=== PATIENT | female | born 1985 | race Caucasian/White ===

== ENCOUNTER 2016-11-04 15:57 | Emergency (ER) | payer MEDICAID ==
[~2016-11-04] VITALS: Ht 157.5 cm; Wt 89.0 kg
[~2016-11-04 15:57] MED LIST: PREN1TAB17 PO
[2016-11-04 16:07] VITALS: Ht 157.5 cm; Wt 89.0 kg
[2016-11-04] MEDS ORDERED: ACETAMINOPHEN 500 MG TAB PO STA (18:25)
[2016-11-04 18:52] LABS: ADD SCAN DIFF NO
[2016-11-04 18:58] LABS: BASOPHIL # 0.1 10^3/ul (0.0-0.1); BASOPHILS % 0.7 % (0.0-2.0); EOSINOPHILS # 0.1 10^3/ul (0.0-0.5); EOSINOPHILS % 0.9 % (0.0-7.0); HEMATOCRIT 37.8 % (37.0-47.0); HEMOGLOBIN 12.8 g/dl (12.0-16.0); LYMPHOCYTES # 3.6 10^3/ul (0.8-2.9); LYMPHOCYTES % 35.8 % (15.0-51.0); MEAN CORPUSCULAR HEMOGLOBIN 29.9 pg (29.0-33.0); MEAN CORPUSCULAR HGB CONC 33.9 g/dl (32.0-37.0); MEAN CORPUSCULAR VOLUME 88.3 fl (82.0-101.0); MEAN PLATELET VOLUME 9.1 fl (7.4-10.4); MONOCYTE # 0.6 10^3/ul (0.3-0.9); NEUTROPHIL # 5.7 10^3/ul (1.6-7.5); NEUTROPHILS % 56.2 % (39.0-77.0); PLATELET COUNT 287 10^3/UL (140-415); RED BLOOD COUNT 4.28 10^6/ul (4.20-5.40); WHITE BLOOD COUNT 10.1 10^3/ul (4.8-10.8)
[2016-11-04 18:58] LABS: ADD UMIC YES; URINE BILIRUBIN (Dip) NEGATIVE (NEGATIVE); URINE BLOOD (Dip) TRACE (NEGATIVE); URINE COLOR LT. YELLOW (YELLOW); URINE GLUCOSE (Dip) NEGATIVE (NEGATIVE); URINE KETONES (Dip) NEGATIVE (NEGATIVE); URINE LEUKOCYTE ESTERASE (Dip) TRACE (NEGATIVE); URINE NITRITE (Dip) NEGATIVE (NEGATIVE); URINE TOTAL PROTEIN (Dip) NEGATIVE (NEGATIVE); URINE UROBILINOGEN (Dip) 0.2 E.U./dL (0.1-1.0)
[2016-11-04 19:10] LABS: BACTERIA,URINE FEW; SQUAMOUS EPITHELIAL CELL,UR FEW; URINE RBCS 0-2 /HPF (0)
--- NOTE | 2016-11-04 19:18 | ERD ---
ER Documentation Chief Complaint Date/Time DATE: 11/04/16 TIME: 19:16 Chief Complaint l side flank pain for past day with painfull urination HPI This is a 31-year-old female presents to the ER with lower back pain. Patient states that she has had painful urination since yesterday. She has also had frequency in urination. Patient admits to light yellow vaginal discharge, however it is not foul smelling. She denies any vaginal itchiness. She denies any vaginal bleeding. Patient is currently . She is about 6 weeks . A1. Patient denies any fevers or chills. She does admit to nausea however she has been feeling nauseous throughout her . She denies any vomiting. She does admit to some suprapubic pain. ROS 12 point review of systems was done, all negative except per HPI. Medications Home Meds Active Scripts Acetaminophen* (Tylenol*) 500 Mg Tab, 500 MG PO Q4H Y for MILD PAIN LEVEL 1-3 for 3 Days, TAB Prov:EUSEBIO CULP 11/04/16 Nitrofurantoin Monohyd Macrocr* (Macrobid*) 100 Mg Capsr, 100 MG PO BID for 7 Days, CAP Prov:EUSEBIO CULP 11/04/16 Reported Medications Vit-Iron Fumarate-FA ( Tablet) 1 Each Tablet, 1 EACH PO DAILY 12/17/13 Allergies Allergies: Coded Allergies: No Known Allergy (Verified , 11/04/16) PMhx/Soc History of Surgery: Yes (Appendix) Anesthesia Reaction: No Hx Neurological Disorder: No Hx Respiratory Disorders: No Hx Cardiac Disorders: No Hx Psychiatric Problems: No Hx Miscellaneous Medical Probl: No Hx Alcohol Use: No Hx Substance Use: No Hx Tobacco Use: No Smoking Status: Never smoker Physical Exam Vitals Vital Signs Date Time Temp Pulse Resp B/P Pulse Ox O2 Delivery O2 Flow Rate FiO2 11/04/16 16:07 97.8 92 18 135/75 100 Physical Exam GENERAL: The patient is well developed and appropriate for usual state of health , in no apparent distress. HEENT: Atraumatic. CHEST: Clear to auscultation bilaterally. There are no rales, wheezes or rhonchi. HEART: Regular rate and rhythm. No murmurs, clicks, rubs or gallops. ABDOMEN: Soft, nontender and nondistended. Good bowel sounds. No rebound or guarding. No gross peritonitis. No gross organomegaly or masses. No Goncalves sign or McBurney point tenderness. Tender to palpation over suprapubic area. BACK: No midline or flank tenderness. No CVA tenderness EXTREMITIES: Equal pulses bilaterally. There is no peripheral clubbing, cyanosis or edema. No focal swelling or erythema. Full range of motion. Grossly neurovascularly intact. NEURO: Alert and oriented. Cranial nerves II through XII are intact. Motor strength in all 4 extremities with 5/5 strength. Sensation grossly intact. Normal speech and gait. SKIN: There is no apparent rash or petechia. The skin is warm and dry. Result Diagram: 11/04/16 1840 Results 24 hrs Laboratory Tests Test 11/04/16 18:30 11/04/16 18:40 Urine Bacteria FEW Urine Bilirubin NEGATIVE Urine Clarity CLEAR Urine Color LT. YELLOW Urine Glucose NEGATIVE% Urine Hemoglobin TRACE Urine Ketones NEGATIVE Urine Leukocyte Esterase TRACE Urine Microscopic RBC 0-2/HPF Urine Microscopic WBC 0-2/HPF Urine Nitrite NEGATIVE Urine Specific [place] >=1.030 Urine Squamous Epithelial Cells FEW Urine Total Protein NEGATIVE Urine Urobilinogen 0.2 E.U./dL Urine Yeast OCCASIONAL Urine pH 6.0 Basophils # 0.110^3/ul Basophils % 0.7% Beta HCG, Quantitative 6713.9mIU/ml Eosinophils # 0.110^3/ul Eosinophils % 0.9% Hematocrit 37.8% Hemoglobin 12.8g/dl Lymphocytes # 3.610^3/ul Lymphocytes % 35.8% Mean Corpuscular Hemoglobin 29.9pg Mean Corpuscular Hemoglobin Concent 33.9g/dl Mean Corpuscular Volume 88.3fl Mean Platelet Volume 9.1fl Monocytes # 0.610^3/ul Monocytes % 6.0% Neutrophils # 5.710^3/ul Neutrophils % 56.2% Nucleated Red Blood Cells # 0.010^3/ul Nucleated Red Blood Cells % 0.0/100WBC Platelet Count 34331^3/UL Red Blood Count 4.2810^6/ul Red Cell Distribution Width 12.0% White Blood Count 10.110^3/ul Current Medications Medications (Trade) Dose Ordered Sig/Eleanor Route PRN Reason Start Time Stop Time Status Last Admin Dose Admin Acetaminophen (Tylenol Tab) 1,000 mg ONCE STAT PO 11/04/16 18:25 11/04/16 18:27 DC 11/04/16 18:35 Procedures/MDM This is a 31-year-old female presents to the ER with back pain and urinary frequency and dysuria. Patient did have trace leukocytes on her urinalysis. Because patient is very symptomatic she will be treated for possible urinary tract infection suspicion for pyelonephritis is low. Patient is afebrile she is well-appearing she does not have any CVA tenderness. In regards to patient' s vaginal discharge I do not believe this is bacterial vaginosis or trichomonas. Seeing as metronidazole is contraindicated in the first trimester I do not believe it is a good idea to give this to the patient as she is only 5 weeks . Patient was not complaining of any vaginal bleeding, I doubt and or ectopic . Patient needs to follow-up within 48 hours for repeat ultrasound and quantitative hCG. She needs to return to ER sooner if symptoms worsen. Plan was discussed with the patient understands and agrees with plan Departure Diagnosis: Primary Impression: UTI (urinary tract infection) Condition: Stable EUSEBIO CULP Nov 04, 2016 19:18
--- NOTE | 2016-11-04 19:29 | RADRPT ---
PROCEDURE: US Pelvis. CLINICAL INDICATION: Vaginal bleeding TECHNIQUE: Multiple sonographic images of the pelvis were obtained utilizing a transabdominal and endovaginal technique. The images were reviewed on a PACS workstation. COMPARISON: None. FINDINGS: The uterus is visualized and measures 10.2 x 7.5 cm in size. A small sonolucency is seen in the endo metrium which gives the mean gestational sac diameter of 9 mm. The estimated gestational age would be 5 weeks and 3 days. There is no evidence for free fluid. The right ovary has a normal echotextur e and measures 3 x 2.6 cm. The left ovary has a normal echotexture and measures 2.2 x 1.4 cm. No a dnexal masses are noted. IMPRESSION: Small sonolucency in the endometrium which may represent an early . Correlation with seria l beta HCG levels is suggested as well as a short interval follow-up. RPTAT: HPNM Physician Trini Date Time Electronically viewed and signed by Physician Trini on 11/04/2016 19:28 /
[2016-11-04] MEDS ORDERED: TYL500 PO (19:39)
[2016-11-04] MEDS ORDERED: NITR-58 PO (19:39)
[2016-11-04 19:53] VITALS: BP 142/86; PULSE 83; RESP 16; TEMP 98.6
== END 2016-11-04 19:55 | disposition home or self-care (01) ==
LOC: FTE 15:57
DX: O23.41 Unspecified infection of urinary tract in pregnancy, first trimester (principal); M54.5 Low back pain; Z3A.01 Less than 8 weeks gestation of pregnancy
CPT/HCPCS: 36415; 76801; 76817; 81001; 84702; 85025; 86900; 86901; Z7502; Z7610; 81003

== ENCOUNTER 2016-11-07 16:35 | Emergency (ER) | payer MEDICAID ==
[~2016-11-07] VITALS: Wt 90.0 kg
[~2016-11-07 16:35] MED LIST changes: +NITR-58 PO; +TYL500 PO
[2016-11-07 18:02] LABS: ADD SCAN DIFF NO
[2016-11-07 18:05] LABS: BASOPHIL # 0.1 10^3/ul (0.0-0.1); BASOPHILS % 0.5 % (0.0-2.0); EOSINOPHILS # 0.1 10^3/ul (0.0-0.5); EOSINOPHILS % 0.7 % (0.0-7.0); HEMATOCRIT 37.5 % (37.0-47.0); HEMOGLOBIN 12.7 g/dl (12.0-16.0); LYMPHOCYTES # 3.9 10^3/ul (0.8-2.9); MEAN CORPUSCULAR HEMOGLOBIN 30.2 pg (29.0-33.0); MEAN CORPUSCULAR HGB CONC 33.9 g/dl (32.0-37.0); MEAN CORPUSCULAR VOLUME 89.1 fl (82.0-101.0); MEAN PLATELET VOLUME 9.1 fl (7.4-10.4); MONOCYTE # 0.7 10^3/ul (0.3-0.9); MONOCYTES % 6.4 % (0.0-11.0); NEUTROPHIL # 6.3 10^3/ul (1.6-7.5); NEUTROPHILS % 57.2 % (39.0-77.0); PLATELET COUNT 273 10^3/UL (140-415); RED BLOOD COUNT 4.21 10^6/ul (4.20-5.40); RED CELL DISTRIBUTION WIDTH 11.9 % (11.5-14.5); WHITE BLOOD COUNT 11.1 10^3/ul (4.8-10.8)
[2016-11-07 18:19] LABS: ADD UMIC YES; URINE BILIRUBIN (Dip) NEGATIVE (NEGATIVE); URINE BLOOD (Dip) TRACE (NEGATIVE); URINE COLOR LT. YELLOW (YELLOW); URINE GLUCOSE (Dip) NEGATIVE (NEGATIVE); URINE KETONES (Dip) NEGATIVE (NEGATIVE); URINE LEUKOCYTE ESTERASE (Dip) 2+ (NEGATIVE); URINE NITRITE (Dip) NEGATIVE (NEGATIVE); URINE TOTAL PROTEIN (Dip) NEGATIVE (NEGATIVE); URINE UROBILINOGEN (Dip) 0.2 E.U./dL (0.1-1.0)
[2016-11-07 18:26] LABS: SQUAMOUS EPITHELIAL CELL,UR FEW; URINE RBCS 0-2 /HPF (0)
[2016-11-07 18:27] LABS: BACTERIA,URINE FEW
--- NOTE | 2016-11-07 18:27 | RADRPT ---
PROCEDURE: US OB. CLINICAL INDICATION: Vaginal spotting TECHNIQUE: Transabdominal and transvaginal views of the pelvis are available for review. COMPARISON: 11/04/16 FINDINGS: There is a single intrauterine gestation with the crown-rump length measuring 0.3 cm, corresponding to a gestational age of 5 weeks and 6 days. The heart rate is noted at 112 bpm. Normal Doppler flow is identified in both ovaries. The right ovary measures 3.5 x 2.2 x 2.5 cm. There is a corpus luteum cyst in the right ovary measur ing 1.6 cm. The left ovary measures 2.4 x 1.5 x 1.8 cm. There is a trace amount of free fluid adjacent to the right ovary and in the cul-de-sac. RPTAT: AA IMPRESSION: Single live intrauterine with an estimated gestational age of 5 weeks and 6 days, based on ultrasound measurements. TOAN based on ultrasound measurements is 07/04/17. bradycardia may be due to the early gestation. Close follow-up is needed. .Yoandy Power MD, MD Date Time Electronically viewed and signed by .Yoandy Power MD, on 11/07/2016 18:27 .S/
--- NOTE | 2016-11-07 18:38 | ERD ---
ER Documentation Chief Complaint Date/Time DATE: 11/07/16 Chief Complaint . Vaginal bleeding. Dysuria. HPI The patient is a 31-year-old female, A1, who presents to the Emergency Department with complaint of vaginal bleeding, vaginal discharge and dysuria. The patient reports that her last menstrual period was 09/23/2016, and she believes that she is approximately 6 weeks . She notes that approximately one week ago she developed a burning sensation upon urination, with associated urinary frequency and urgency. She was seen in the Emergency Department, at which time she was diagnosed with a urinary tract infection, and discharged home with a prescription for Macrobid. She has been taking the Macrobid as directed, twice a day, though has not noted any change in symptoms. She continues to experience dysuria, frequency and urgency. Denies flank pain. The patient also notes presence of white-colored vaginal discharge, associated with minimal pruritus. However, denies any associated foul smell. Denies dyspareunia. The patient is sexually active, but in a monogamous relationship for many years. She doubts STI exposure. Additionally, the patient reports that this morning, after using the restroom, she noted light pink-colored vaginal bleeding on the toilet paper, prompting her visit to the ED, as she is concerned about viability of her . She denies any fevers or chills. Admits to mild nausea, however states that she has been nauseous throughout her and this is not new. Denies any vomiting. Denies diarrhea. Denies any black or bloody stools. Denies abdominal pain or cramping. Denies pelvic pain. Denies lower extremity edema, calf swelling or calf tenderness. Denies any headache, dizziness, weakness. Denies chest pain, palpitations or shortness of breath. ROS All systems reviewed and are negative except as per history of present illness. Medications Home Meds Active Scripts Metronidazole* (Metrogel* Vaginal) 0.75% -70 Gram Gel.w.appl, 1 APPFUL VAG HS for 5 Days, TUB Prov:TED HARDEN PA-C 11/07/16 Acetaminophen* (Tylenol*) 500 Mg Tab, 500 MG PO Q4H Y for MILD PAIN LEVEL 1-3 for 3 Days, TAB Prov:EUSEBIO CULP 2/25/17 Nitrofurantoin Monohyd Macrocr* (Macrobid*) 100 Mg Capsr, 100 MG PO BID for 7 Days, CAP Prov:EUSEBIO CULP 11/04/16 Reported Medications Vit-Iron Fumarate-FA ( Tablet) 1 Each Tablet, 1 EACH PO DAILY 12/17/13 Allergies Allergies: Coded Allergies: No Known Allergy (Verified , 11/04/16) PMhx/Soc History of Surgery: Yes (Appendix) Anesthesia Reaction: No Hx Neurological Disorder: No Hx Respiratory Disorders: No Hx Cardiac Disorders: No Hx Psychiatric Problems: No Hx Miscellaneous Medical Probl: No Hx Alcohol Use: No Hx Substance Use: No Hx Tobacco Use: No Smoking Status: Never smoker Physical Exam Vitals Vital Signs Date Time Temp Pulse Resp B/P Pulse Ox O2 Delivery O2 Flow Rate FiO2 11/07/16 20:52 97.4 81 18 134/80 98 Room Air 11/07/16 17:05 98.3 80 20 133/75 100 Physical Exam GENERAL: Well-developed, well-nourished, female, in no acute distress HEENT: Head is normocephalic, atraumatic. No scleral pallor or icterus. Pupils equal, round and reactive to light. Extraocular movements intact. Conjunctiva pink. Moist mucous membranes. NECK: Supple. Full range of motion. RESPIRATORY: Lungs are clear to auscultation bilaterally. Equal breath sounds. Normal expiratory effort. CARDIOVASCULAR: Regular rate and rhythm. S1 and S2 normal. GASTROINTESTINAL: Abdomen is soft, non-tender, and non-distended. No guarding, no rebound tenderness. Normal bowel sounds. GENITOURINARY: White-colored discharge noted with mild erythema of external genitalia. No cervical motion tenderness. No adnexal or uterine masses. No lesions, vesicles, ulcerations noted. Cervix closed. No active bleeding. FLANK: No CVA tenderness. EXTREMITIES: No clubbing, cyanosis, or edema. Normal skin perfusion. Moving all extremities. Muscle tone is normal. No focal swelling or erythema. Distal pulses are palpable, 2+ bilaterally. Capillary refill is less than 2 seconds. NEUROLOGIC: The patient is alert, awake, and oriented x 3. No focal neurologic deficits. INTEGUMENT: Skin is intact. Warm and dry. No rashes, no petechiae present. Normal turgor. PSYCHIATRIC: Normal mood and mentation. Result Diagram: 11/07/16 1800 Results 24 hrs Laboratory Tests Test 11/07/16 18:00 Basophils # 0.110^3/ul Basophils % 0.5% Beta HCG, Quantitative 11538.0mIU/ml Eosinophils # 0.110^3/ul Eosinophils % 0.7% Hematocrit 37.5% Hemoglobin 12.7g/dl Lymphocytes # 3.910^3/ul Lymphocytes % 35.0% Mean Corpuscular Hemoglobin 30.2pg Mean Corpuscular Hemoglobin Concent 33.9g/dl Mean Corpuscular Volume 89.1fl Mean Platelet Volume 9.1fl Monocytes # 0.710^3/ul Monocytes % 6.4% Neutrophils # 6.310^3/ul Neutrophils % 57.2% Nucleated Red Blood Cells # 0.010^3/ul Nucleated Red Blood Cells % 0.0/100WBC Platelet Count 21297^3/UL Red Blood Count 4.2110^6/ul Red Cell Distribution Width 11.9% Urine Bacteria FEW Urine Bilirubin NEGATIVE Urine Clarity CLEAR Urine Color LT. YELLOW Urine Glucose NEGATIVE% Urine Hemoglobin TRACE Urine Ketones NEGATIVE Urine Leukocyte Esterase 2+ Urine Microscopic RBC 0-2/HPF Urine Microscopic WBC 10-25/HPF Urine Nitrite NEGATIVE Urine Specific [place] <=1.005 Urine Squamous Epithelial Cells FEW Urine Total Protein NEGATIVE Urine Urobilinogen 0.2 E.U./dL Urine pH 6.0 White Blood Count 11.110^3/ul Current Medications Medications (Trade) Dose Ordered Sig/Eleanor Route PRN Reason Start Time Stop Time Status Last Admin Dose Admin Fluconazole (Diflucan) 150 mg ONCE ONCE PO 11/07/16 20:30 11/07/16 20:31 DC 11/07/16 20:36 Procedures/MDM DIAGNOSTIC TESTS AND INTERPRETATION: PROCEDURE: US OB. CLINICAL INDICATION: Vaginal spotting TECHNIQUE: Transabdominal and transvaginal views of the pelvis are available for review. COMPARISON: 11/04/16 FINDINGS: There is a single intrauterine gestation with the crown-rump length measuring 0.3 cm, corresponding to a gestational age of 5 weeks and 6 days. The heart rate is noted at 112 bpm. Normal Doppler flow is identified in both ovaries. The right ovary measures 3.5 x 2.2 x 2.5 cm. There is a corpus luteum cyst in the right ovary measuring 1.6 cm. The left ovary measures 2.4 x 1.5 x 1.8 cm. There is a trace amount of free fluid adjacent to the right ovary and in the cul -de-sac. IMPRESSION: Single live intrauterine with an estimated gestational age of 5 weeks and 6 days, based on ultrasound measurements. TOAN based on ultrasound measurements is 07/04/17. bradycardia may be due to the early gestation. Close follow-up is needed. .Yoandy Power MD, MD Date Time Electronically viewed and signed by .Yoandy Power MD, on 11/07/2016 18: 27 Microbiology WET MOUNT Final WHITE BLOOD CELLS 4+ BACTERIA 3+ EPITHELIAL CELLS 3+ YEAST 2+ CLUE CELLS CLUE CELLS SEEN MOTILE TRICHOMONAS NO MOTILE TRICHOMONAS SEEN CONSULTATION: Dr. Arias (BROACHING MACHINE REPAIRER): Given that patient has 2+ urine leukocyte esterase, + clue cells, + yeast and is , BROACHING MACHINE REPAIRER consulted. Dr. Arias recommends that patient continue on the Macrobid for the urinary tract infection. Recommends fluconazole 150 mg PO x 1 in the ED as treatment of yeast infection. Recommends that the patient be discharged home with rx for MetroGel as treatment of bacterial vaginosis. ED COURSE: The patient was stable throughout the ED course. Pelvic examination performed. Patient's wet mount revealed + yeast and + clue cells. Suspect johanna and bacterial vaginosis as etiology of patient's discharge and discomfort. Patient was given 150 mg Fluconazole in the ED as treatment of yeast infection. Discussed patient's urinalysis results, and Dr. Arias's recommendation that patient continue with Macrobid. Additionally, discussed that will prescribe MetroGel as treatment of bacterial vaginosis. Patient agrees with plan. GC/Chlamydia testing sent and pending. Ultrasound imaging and laboratory testing performed. The possibility of threatened was discussed with the patient and she was told to follow up with her BROACHING MACHINE REPAIRER within 2-3 days for re-evaluation. The patient complies and agrees with plan. MEDICAL DECISION MAKING: This is a 31-year-old female presenting to the Emergency Department complaining of vaginal bleeding, discharge and dysuria. She had white-colored discharge noted with mild erythema of external genitalia on physical examination. Otherwise, no significant abnormalities were noted. Vital signs were normal. Differential diagnosis includes, but is not limited to, ectopic , cervicitis, fibroids, molar , implantation bleeding, heterotopic , septic , missed , incomplete , inevitable , threatened , complete , coagulopathy, fibroids, adenomyosis, endometriosis, neoplasia, vaginitis, PID , vaginal trauma, dysfunctional uterine bleeding, gonorrhea, chlamydia, urinary tract infection, pyelonephritis, bacterial vaginosis, candidiasis, trichomoniasis. Urinalysis revealed 2+ urine leukocyte esterase, indicating likely urinary tract infection. Urine culture sent. Wet mount noted 2+ yeast and presence of clue cells, indicating candidiasis and bacterial vaginosis. GC/Chlamydia testing sent. Beta hCG is 13,473. Records from prior visit indicate that patient is Rh (+), no indication for RhoGAM. Ultrasound performed revealed a single intrauterine gestation, corresponding to a gestational age of 5 weeks and 6 days, with heart rate is noted at 112 bpm. Given bradycardia, close follow-up advised. After rest, the patient reports no new complaints, and states that her cramping has resolved. Upon review and interpretation of the patient's presentation and overall ER course, I believe the patient's symptoms are most consistent with threatened , bacterial vaginosis, vaginal candidiasis and urinary tract infection. Patient with no cervical motion tenderness. No clinical finding s at this time to suggest cervicitis, PID, pyelonephritis, acute/surgical abdomen. The patient patient is in stable condition and therefore can be discharged home with prescription for MetroGel strict return precautions for signs of deteriorating or worsening condition. The patient is advised to follow up with her BROACHING MACHINE REPAIRER within 2-3 days for reevaluation and further management, or return to the ER sooner for any worsening symptoms. I shared all laboratory and diagnostic imaging studies with the patient at length and in great detail, and the patient verbally understands and agrees with the plan for further observation and care as an outpatient. At the time of discharge, all questions were answered. Departure Diagnosis: Primary Impression: Vaginal bleeding in patient at less than 20 weeks gestation Additional Impressions: Vaginal candidiasis Urinary tract infection Urinary tract infection type: acute cystitis Hematuria presence: with hematuria Qualified Code: N30.01 - Acute cystitis with hematuria Threatened Bacterial vaginosis Condition: Stable Patient Instructions: Bleeding During Early , Possible Miscarriage ( Threatened ), Understanding Urinary Tract Infections (UTIs), Vaginal Infection: Bacterial Vaginosis, Vaginal Infection: Yeast (Candidiasis), Vaginitis, Bacterial Additional Instructions: Llame al doctor MAANA y rachel prakash AKASH PARA DENTRO DE 2-3 EVANS.Dgale a la secretaria que nosotros le instruimos hacer esta akash.Avise o llame si pena condicin se empeora antes de la akash. Regresa aqui si peor o no mejor. TED HARDEN PA-C Nov 07, 2016 18:38
[2016-11-07] MEDS ORDERED: METR70GE15 VAG (20:26)
[2016-11-07] MEDS ORDERED: FLUCONAZOLE 150 MG TAB PO ONE (20:30)
[2016-11-07 20:52] VITALS: BP 134/80; PULSE 81; RESP 18; TEMP 97.4
== END 2016-11-07 20:54 | disposition home or self-care (01) ==
LOC: FTE 16:35
DX: O20.9 Hemorrhage in early pregnancy, unspecified (principal); B37.3 Candidiasis of vulva and vagina; O99.89 Other specified diseases and conditions complicating pregnancy, childbirth and the puerperium; O23.41 Unspecified infection of urinary tract in pregnancy, first trimester; O20.0 Threatened abortion; Z3A.01 Less than 8 weeks gestation of pregnancy
CPT/HCPCS: 76801; 76817; 81001; 84702; 85025; 87086; 87210; 87591; Z7502; Z7610; 81003

== ENCOUNTER 2016-11-17 14:50 | Emergency (ER) | payer MEDICAID ==
[~2016-11-17] VITALS: Ht 160 cm; Wt 89.0 kg
[~2016-11-17 14:50] MED LIST changes: +METR70GE15 VAG
[2016-11-17 14:53] VITALS: Ht 160 cm; Wt 89.0 kg
[2016-11-17 17:30] LABS: ADD SCAN DIFF NO
[2016-11-17 17:34] LABS: BASOPHIL # 0.1 10^3/ul (0.0-0.1); BASOPHILS % 0.5 % (0.0-2.0); EOSINOPHILS # 0.1 10^3/ul (0.0-0.5); EOSINOPHILS % 0.8 % (0.0-7.0); HEMATOCRIT 38.5 % (37.0-47.0); HEMOGLOBIN 13.1 g/dl (12.0-16.0); LYMPHOCYTES # 4.1 10^3/ul (0.8-2.9); LYMPHOCYTES % 31.1 % (15.0-51.0); MEAN CORPUSCULAR VOLUME 88.3 fl (82.0-101.0); MEAN PLATELET VOLUME 9.1 fl (7.4-10.4); MONOCYTE # 0.9 10^3/ul (0.3-0.9); MONOCYTES % 6.6 % (0.0-11.0); NEUTROPHIL # 7.9 10^3/ul (1.6-7.5); NEUTROPHILS % 60.7 % (39.0-77.0); PLATELET COUNT 297 10^3/UL (140-415); RED BLOOD COUNT 4.36 10^6/ul (4.20-5.40); RED CELL DISTRIBUTION WIDTH 11.9 % (11.5-14.5); WHITE BLOOD COUNT 13.1 10^3/ul (4.8-10.8)
[2016-11-17 17:40] LABS: ADD UMIC YES; URINE BILIRUBIN (Dip) NEGATIVE (NEGATIVE); URINE BLOOD (Dip) 2+ (NEGATIVE); URINE COLOR LT. YELLOW (YELLOW); URINE GLUCOSE (Dip) NEGATIVE (NEGATIVE); URINE KETONES (Dip) NEGATIVE (NEGATIVE); URINE LEUKOCYTE ESTERASE (Dip) 1+ (NEGATIVE); URINE NITRITE (Dip) NEGATIVE (NEGATIVE); URINE TOTAL PROTEIN (Dip) NEGATIVE (NEGATIVE); URINE UROBILINOGEN (Dip) 0.2 E.U./dL (0.1-1.0)
[2016-11-17 17:58] LABS: BACTERIA,URINE FEW; SQUAMOUS EPITHELIAL CELL,UR MODERATE
--- NOTE | 2016-11-17 20:12 | ERD ---
ER Documentation Chief Complaint Date/Time DATE: 11/17/16 TIME: 20:10 Chief Complaint 7 weeks with spotting HPI This 31-year-old female presents with vaginal spotting starting today. It started after she had a Pap smear at her OBs office. The blood is slight and bright red mixed with some mucus. She showed up. Denies any fevers, vomiting, or significant pain. ROS All systems reviewed and are negative except as per history of present illness. Medications Home Meds Active Scripts Metronidazole* (Metrogel* Vaginal) 0.75% -70 Gram Gel.w.appl, 1 APPFUL VAG HS for 5 Days, TUB Prov:TED HARDENC 11/07/16 Acetaminophen* (Tylenol*) 500 Mg Tab, 500 MG PO Q4H Y for MILD PAIN LEVEL 1-3 for 3 Days, TAB Prov:EUSEBIO CULP 11/04/16 Nitrofurantoin Monohyd Macrocr* (Macrobid*) 100 Mg Capsr, 100 MG PO BID for 7 Days, CAP Prov:EUSEBIO CULP 11/04/16 Reported Medications Vit-Iron Fumarate-FA ( Tablet) 1 Each Tablet, 1 EACH PO DAILY 12/17/13 Allergies Allergies: Coded Allergies: No Known Allergy (Verified , 11/04/16) PMhx/Soc Medical and Surgical Hx: pt denies Medical Hx History of Surgery: Yes (Appendix, CSECTION X1) Anesthesia Reaction: No Hx Neurological Disorder: No Hx Respiratory Disorders: No Hx Cardiac Disorders: No Hx Psychiatric Problems: No Hx Miscellaneous Medical Probl: No Hx Alcohol Use: No Hx Substance Use: No Hx Tobacco Use: No Smoking Status: Never smoker Physical Exam Vitals Vital Signs Date Time Temp Pulse Resp B/P Pulse Ox O2 Delivery O2 Flow Rate FiO2 11/17/16 14:53 98.1 78 18 130/78 99 Physical Exam Const: [] Alert, [id number]. Head: Atraumatic Eyes: Normal Conjunctiva ENT: Normal External Ears, Nose and Mouth. Neck: Full range of motion..~ No meningismus. Resp: Clear to auscultation bilaterally Cardio: Regular rate and rhythm, no murmurs Abd: Soft, non tender, non distended. Normal bowel sounds Skin: No petechiae or rashes Back: No midline or flank tenderness Ext: No cyanosis, or edema Neur: Awake and alert Psych: Normal Mood and Affect Result Diagram: 11/17/16 1725 Results 24 hrs Laboratory Tests Test 11/17/16 17:25 Basophils # 0.110^3/ul Basophils % 0.5% Beta HCG, Quantitative 41961.0mIU/ml Eosinophils # 0.110^3/ul Eosinophils % 0.8% Hematocrit 38.5% Hemoglobin 13.1g/dl Lymphocytes # 4.110^3/ul Lymphocytes % 31.1% Mean Corpuscular Hemoglobin 30.0pg Mean Corpuscular Hemoglobin Concent 34.0g/dl Mean Corpuscular Volume 88.3fl Mean Platelet Volume 9.1fl Monocytes # 0.910^3/ul Monocytes % 6.6% Neutrophils # 7.910^3/ul Neutrophils % 60.7% Nucleated Red Blood Cells # 0.010^3/ul Nucleated Red Blood Cells % 0.0/100WBC Platelet Count 13290^3/UL Red Blood Count 4.3610^6/ul Red Cell Distribution Width 11.9% Urine Bacteria FEW Urine Bilirubin NEGATIVE Urine Clarity SLIGHTLY CLOUDY Urine Color LT. YELLOW Urine Glucose NEGATIVE% Urine Hemoglobin 2+ Urine Ketones NEGATIVE Urine Leukocyte Esterase 1+ Urine Microscopic RBC 2-5/HPF Urine Microscopic WBC 5-10/HPF Urine Nitrite NEGATIVE Urine Specific [place] <=1.005 Urine Squamous Epithelial Cells MODERATE Urine Total Protein NEGATIVE Urine Urobilinogen 0.2 E.U./dL Urine pH 6.0 White Blood Count 13.110^3/ul Procedures/MDM Pelvic ultrasound shows a normal-appearing 7 week intrauterine with positive heart tones. Quantitative hCG is 54,000 and patient is Rh+. Urine shows leukocytes but only a few bacteria. Patient presents with vaginal spotting after Pap smear today. It does not appear to be acute complications of . May be some slight bleeding from the cervix. Patient shows no signs of acute abdomen, ectopic , or other additional complications as a source of her bleeding. She will discharged home with further observation and instructed to follow-up with primary doctor or return to the ER for new or worsening symptoms. Departure Diagnosis: Primary Impression: Vaginal bleeding in patient at less than 20 weeks ges... Condition: Stable Patient Instructions: Bleeding During Early Additional Instructions: All examinations normal today and normal 7 week seen on ultrasound. Recheck for new or worsening symptoms or primary care doctor. JUSTYNA HURD MD Nov 17, 2016 20:12
[2016-11-17 20:17] VITALS: BP 129/75; PULSE 90; RESP 16
--- NOTE | 2016-11-17 21:22 | RADRPT ---
PROCEDURE: OB Ultrasound. CLINICAL INDICATION: Positive test. Vaginal bleeding. TECHNIQUE: Ultrasound of the pelvis was performed with transabdominal and transvaginal sonography in the axial and sagittal planes. COMPARISON: No prior study is available for comparison. FINDINGS: There is a single intrauterine gestational sac. pole and yolk sac are present. There is heart motion. heart rate is 160 beats per minute. [place]-rump length is 1.14 cm. Mean sac diameter is 1.91 cm. Menstrual age by ultrasound dates is 7 weeks 0 days. This indicates an expected date of delivery of 07/06/2017. The right ovary measures 3.9 x 2.2 x 2.5 cm. The left ovary measures 2.1 x 1.4 x 1.2 cm. Color Doppler and pulsed Doppler sonography demonstrate normal flow to both ovaries. There is no ovarian enlargement or mass. A small amount of free fluid is present in the cul-de-sac. IMPRESSION: 1. Single live intrauterine gestation of 7 weeks 0 days menstrual age by ultrasound dates. 2. Expected date of delivery is 07/06/2017. RPTAT: QQ .Christiano Keenan MD, Date Time Electronically viewed and signed by .Christiano Keenan MD, on 11/17/2016 21:21 .R/
== END 2016-11-17 20:18 | disposition home or self-care (01) ==
LOC: FTE 14:50
DX: O20.9 Hemorrhage in early pregnancy, unspecified (principal); Z3A.01 Less than 8 weeks gestation of pregnancy
CPT/HCPCS: 36415; 76801; 76817; 81001; 81003; 84702; 85025; 86900; 86901; Z7502

== ENCOUNTER 2016-12-14 14:49 | Emergency (ER) | payer MEDICAID ==
[~2016-12-14] VITALS: Wt 79.0 kg
[2016-12-14 17:33] LABS: ADD SCAN DIFF NO
[2016-12-14 17:34] LABS: BASOPHIL # 0.1 10^3/ul (0.0-0.1); BASOPHILS % 0.5 % (0.0-2.0); EOSINOPHILS # 0.1 10^3/ul (0.0-0.5); EOSINOPHILS % 0.7 % (0.0-7.0); HEMATOCRIT 36.7 % (37.0-47.0); HEMOGLOBIN 12.8 g/dl (12.0-16.0); LYMPHOCYTES # 3.3 10^3/ul (0.8-2.9); LYMPHOCYTES % 27.2 % (15.0-51.0); MEAN CORPUSCULAR HEMOGLOBIN 30.8 pg (29.0-33.0); MEAN CORPUSCULAR HGB CONC 34.9 g/dl (32.0-37.0); MEAN CORPUSCULAR VOLUME 88.4 fl (82.0-101.0); MEAN PLATELET VOLUME 8.9 fl (7.4-10.4); MONOCYTE # 0.7 10^3/ul (0.3-0.9); NEUTROPHIL # 7.9 10^3/ul (1.6-7.5); NEUTROPHILS % 65.4 % (39.0-77.0); PLATELET COUNT 272 10^3/UL (140-415); RED BLOOD COUNT 4.15 10^6/ul (4.20-5.40); RED CELL DISTRIBUTION WIDTH 11.9 % (11.5-14.5); WHITE BLOOD COUNT 12.1 10^3/ul (4.8-10.8)
--- NOTE | 2016-12-14 17:42 | RADRPT ---
PROCEDURE: OB Ultrasound. CLINICAL INDICATION: Positive test. Vaginal bleeding. TECHNIQUE: Ultrasound of the pelvis was performed with transabdominal sonography in the axial and sagittal planes. COMPARISON: No prior study is available for comparison. FINDINGS: There is a single intrauterine gestational sac. pole is present. There is no heart motion. [employer]-rump length is 4.44 cm. Menstrual age by ultrasound dates is 11 weeks 2 days. The ovaries are not visualized. There is no other pelvic mass or free fluid. IMPRESSION: 1. demise at 11 weeks 2 days gestational age by ultrasound dates. RPTAT: QQ .Christiano Keenan MD, MD Date Time Electronically viewed and signed by .Christiano Keenan MD, MD on 12/14/2016 17:42 .R/
[2016-12-14 18:05] LABS: ADD UMIC YES; URINE BILIRUBIN (Dip) NEGATIVE (NEGATIVE); URINE BLOOD (Dip) NEGATIVE (NEGATIVE); URINE GLUCOSE (Dip) NEGATIVE (NEGATIVE); URINE KETONES (Dip) NEGATIVE (NEGATIVE); URINE LEUKOCYTE ESTERASE (Dip) 2+ (NEGATIVE); URINE NITRITE (Dip) NEGATIVE (NEGATIVE); URINE TOTAL PROTEIN (Dip) NEGATIVE (NEGATIVE); URINE UROBILINOGEN (Dip) 0.2 E.U./dL (0.1-1.0)
[2016-12-14 18:16] LABS: SQUAMOUS EPITHELIAL CELL,UR MANY; URINE COLOR YELLOW (YELLOW)
[2016-12-14 18:17] LABS: BACTERIA,URINE MANY; URINE RBCS 0-2 /HPF (0)
[2016-12-14] MEDS ORDERED: NITR-58 PO (18:36)
--- NOTE | 2016-12-14 18:44 | ERD ---
ER Documentation Chief Complaint Date/Time DATE: 12/14/16 TIME: 18:39 Chief Complaint 12 WEEKS PREG UNABLE TO HEAR HEART BEAT SENT BY OB HPI This is a 31-year-old female presents to the ER because she is 12 weeks and was told at her OBs office that they could not hear the heartbeat of the baby. A0. Patient she does not have any pelvic pain or cramping. No urinary frequency or dysuria. She denies any vaginal bleeding. She denies any vaginal discharge. Patient denies any fevers or chills. ROS 12 point review of systems was done, all negative except per HPI. Medications Home Meds Active Scripts Nitrofurantoin Monohyd Macrocr* (Macrobid*) 100 Mg Capsr, 100 MG PO BID for 7 Days, CAP Prov:SUNI,EUSEBIO C 12/14/16 Metronidazole* (Metrogel* Vaginal) 0.75% -70 Gram Gel.w.appl, 1 APPFUL VAG HS for 5 Days, TUB Prov:TED HARDEN PA-C 11/07/16 Acetaminophen* (Tylenol*) 500 Mg Tab, 500 MG PO Q4H Y for MILD PAIN LEVEL 1-3 for 3 Days, TAB Prov:SUNI,EUSEBIO C 11/04/16 Nitrofurantoin Monohyd Macrocr* (Macrobid*) 100 Mg Capsr, 100 MG PO BID for 7 Days, CAP Prov:SUNI,EUSEBIO C 11/04/16 Reported Medications Vit-Iron Fumarate-FA ( Tablet) 1 Each Tablet, 1 EACH PO DAILY 12/17/13 Allergies Allergies: Coded Allergies: No Known Allergy (Verified , 11/04/16) PMhx/Soc History of Surgery: Yes (Appendix, CSECTION X1) Anesthesia Reaction: No Hx Neurological Disorder: No Hx Respiratory Disorders: No Hx Cardiac Disorders: No Hx Psychiatric Problems: No Hx Miscellaneous Medical Probl: No Hx Alcohol Use: No Hx Substance Use: No Hx Tobacco Use: No Physical Exam Vitals Vital Signs Date Time Temp Pulse Resp B/P Pulse Ox O2 Delivery O2 Flow Rate FiO2 12/14/16 15:08 99.0 87 18 128/81 99 Physical Exam GENERAL: The patient is well developed and appropriate for usual state of health , in no apparent distress. HEENT: Atraumatic. CHEST: Clear to auscultation bilaterally. There are no rales, wheezes or rhonchi. HEART: Regular rate and rhythm. No murmurs, clicks, rubs or gallops. ABDOMEN: Soft, nontender and nondistended. Good bowel sounds. No rebound or guarding. No gross peritonitis. No gross organomegaly or masses. No Goncalves sign or McBurney point tenderness. BACK: No midline or flank tenderness. SKIN: There is no apparent rash or petechia. The skin is warm and dry. Result Diagram: 12/14/16 1720 Results 24 hrs Laboratory Tests Test 12/14/16 17:11 12/14/16 17:20 Urine Color YELLOW Urine Clarity CLOUDY Urine pH 6.0 Urine Specific [place] 1.025 Urine Ketones NEGATIVE Urine Nitrite NEGATIVE Urine Bilirubin NEGATIVE Urine Urobilinogen 0.2 E.U./dL Urine Leukocyte Esterase 2+ Urine Microscopic RBC 0-2/HPF Urine Microscopic WBC 25-50/HPF Urine Squamous Epithelial Cells MANY Urine Bacteria MANY Urine Hemoglobin NEGATIVE Urine Glucose NEGATIVE% Urine Total Protein NEGATIVE White Blood Count 12.110^3/ul Red Blood Count 4.1510^6/ul Hemoglobin 12.8g/dl Hematocrit 36.7% Mean Corpuscular Volume 88.4fl Mean Corpuscular Hemoglobin 30.8pg Mean Corpuscular Hemoglobin Concent 34.9g/dl Red Cell Distribution Width 11.9% Platelet Count 37579^3/UL Mean Platelet Volume 8.9fl Neutrophils % 65.4% Lymphocytes % 27.2% Monocytes % 6.0% Eosinophils % 0.7% Basophils % 0.5% Nucleated Red Blood Cells % 0.0/100WBC Neutrophils # 7.910^3/ul Lymphocytes # 3.310^3/ul Monocytes # 0.710^3/ul Eosinophils # 0.110^3/ul Basophils # 0.110^3/ul Nucleated Red Blood Cells # 0.010^3/ul Beta HCG, Quantitative 29587.0mIU/ml Procedures/MDM Differential diagnosis: Threatened , missed , incomplete , ectopic , molar , UTI, pyelonephritis. Patient unfortunately did have demise. At this time patient is not bleeding, she is hemodynamically stable and does not have any pain. I consulted OB mental health practitioner and patient can f/u with her OB and schedule a D&C. Patient needs to follow-up with her primary care doctor within 1-2 days or return to ER sooner if symptoms worsen. My medical decision making was shared with the patient she understands and agrees with plan Departure Diagnosis: Primary Impression: demise Condition: Stable Patient Instructions: Miscarriage Additional Instructions: Call your primary care doctor TOMORROW for an appointment during the next 1-2 days.See the doctor sooner or return here if your condition worsens before your appointment time. YOUR OB HAS TO SCHEDULE A D&C FOR YOU, THIS IS SOMETHING THAT CAN BE SCHEDULED OUTPATIENT EUSEBIO CULP Dec 14, 2016 18:44
[2016-12-14 18:46] VITALS: BP 123/78; PULSE 88; RESP 18; TEMP 98.6
== END 2016-12-14 18:46 | disposition home or self-care (01) ==
LOC: FTE 14:49
DX: O02.1 Missed abortion (principal)
CPT/HCPCS: 76801; 81001; 81003; 84702; 85025; 86900; 86901; Z7502

== ENCOUNTER 2017-12-04 12:57 | Emergency (ER) | END 2017-12-04 17:25 | disposition home or self-care (01) ==

== ENCOUNTER 2017-12-27 16:40 | Outpatient (CLI) | END 2017-12-27 20:23 | disposition home or self-care (01) ==

== ENCOUNTER 2018-04-06 09:41 | Outpatient (CLI) | END 2018-04-06 12:00 | disposition home or self-care (01) ==

== ENCOUNTER 2018-04-18 12:53 | Inpatient (IN) | END 2018-04-23 23:42 | disposition home or self-care (01) | DRG 765 ==

== ENCOUNTER 2018-09-17 23:53 | Emergency (ER) | payer MEDICAID ==
[~2018-09-17] VITALS: Ht 160 cm; Wt 85.4 kg
[~2018-09-17 23:53] MED LIST changes: -METR70GE15 VAG; -NITR-58 PO; -TYL500 PO
[2018-09-17 23:56] VITALS: Ht 160 cm; Wt 85.4 kg
--- NOTE | 2018-09-18 04:31 | ERD ---
ER Documentation Chief Complaint Chief Complaint vag bleed and back pain x2 hrs. 8 weeks HPI 33-year-old female who is approximately 8 weeks is complaining of vaginal spotting. Patient states that she noticed slight blood when wiping after urination. It occurred 5 hours ago. Denies pelvic pain. Denies dysuria. Denies fever or chills. Patient is A1 (5 live births), LMP 07/18/2018. ROS All systems reviewed and are negative except as per history of present illness. Medications Home Meds Active Scripts Acetaminophen* (Tylophen*) 500 Mg Capsule, 1 CAP PO Q6H PRN for PAIN AND OR ELEVATED TEMP, #20 CAP Prov:ERIC BENTLEY Alek. PRODUCT SAFETY EXPERT 09/18/18 Reported Medications Vit-Iron Fumarate-FA ( Tablet) 1 Each Tablet, 1 EACH PO DAILY 12/17/13 Allergies Allergies: Coded Allergies: No Known Allergy (Verified , 09/17/18) PMhx/Soc History of Surgery: Yes (C section, appendectomy) Anesthesia Reaction: No Hx Neurological Disorder: No Hx Respiratory Disorders: No Hx Cardiac Disorders: No Hx Psychiatric Problems: No Hx Miscellaneous Medical Probl: No Hx Alcohol Use: No Hx Substance Use: No Hx Tobacco Use: No Smoking Status: Never smoker Physical Exam Vitals Vital Signs Date Temp Pulse Resp B/P (MAP) Pulse Ox O2 O2 Flow FiO2 Time Delivery Rate 09/17/18 97.1 90 20 135/62 100 23:56 (86) Physical Exam General: Well-developed, well-nourished, conscious and coherent, in no distress Skin: Warm and dry without rash, good texture and turgor Head: Normocephalic without evidence of trauma Chest: Normal AP diameter. Good expansion without retractions. Nontender. Lungs are clear to auscultate bilaterally with good tidal volume Heart: Regular rate and rhythm. No murmur, rub, or gallops heard Abdomen: Soft and nontender without masses, guarding, or rebound. Bowel sounds are active. No hepatosplenomegaly Back: Without spinal or CVA tenderness Extremities: Full range of motion. Good strength bilaterally. No erythema, ecchymosis, or edema. Peripheral pulses are intact. Sensation intact Neuro: Alert and oriented 4, GCS 15. Result Diagram: 09/18/18 0432 Results 24 hrs Laboratory Tests Test 09/18/18 04:31 09/18/18 04:32 Beta HCG, Quantitative 17553.0 mIU/ml White Blood Count 9.8 10^3/ul Red Blood Count 4.34 10^6/ul Hemoglobin 12.6 g/dl Hematocrit 37.1 % Mean Corpuscular Volume 85.5 fl Mean Corpuscular Hemoglobin 29.0 pg Mean Corpuscular Hemoglobin Concent 34.0 g/dl Red Cell Distribution Width 13.2 % Platelet Count 279 10^3/UL Mean Platelet Volume 8.8 fl Immature Granulocytes % 0.300 % Neutrophils % 52.8 % Lymphocytes % 39.5 % Monocytes % 5.5 % Eosinophils % 1.2 % Basophils % 0.7 % Nucleated Red Blood Cells % 0.0 /100WBC Immature Granulocytes # 0.030 10^3/ul Neutrophils # 5.1 10^3/ul Lymphocytes # 3.9 10^3/ul Monocytes # 0.5 10^3/ul Eosinophils # 0.1 10^3/ul Basophils # 0.1 10^3/ul Nucleated Red Blood Cells # 0.0 10^3/ul Urine Color STRAW Urine Clarity CLEAR Urine pH 6.0 Urine Specific [place] 1.011 Urine Ketones NEGATIVE mg/dL Urine Nitrite NEGATIVE mg/dL Urine Bilirubin NEGATIVE mg/dL Urine Urobilinogen NEGATIVE mg/dL Urine Leukocyte Esterase NEGATIVE Katelyn/ul Urine Microscopic RBC 0 /HPF Urine Microscopic WBC 2 /HPF Urine Squamous Epithelial Cells FEW /HPF Urine Hemoglobin 1+ mg/dL Urine Glucose NEGATIVE mg/dL Urine Total Protein NEGATIVE mg/dl PROCEDURE: US OB. CLINICAL INDICATION: Bleeding TECHNIQUE: Transabdominal views of the pelvis are available for review. COMPARISON: No prior studies are available for comparison. FINDINGS: A 4.1 x 5.0 x 5.5 cm heterogeneous lesion is identified within the anterior myometrium, consistent with an intramural fibroid. There is a single live intrauterine . [place]-rump length: 2.0 cm heart rate: 171 Ultrasound estimated gestational age: 8 weeks 3 days Estimated date of delivery: 04/27/2019 The ovaries are not clearly visualized. No adnexal lesions otherwise demonstrated. No free fluid. IMPRESSION: 1. Single live intrauterine with an estimated gestational age of 8 weeks 3 days.. 2. TOAN 04/27/2019. 3. No visible subchorionic hemorrhage. Prominent 5 cm fibroid identified in the anterior myometrium. RPTAT: [facility] Physician Leslee Date Time Electronically viewed and signed by Sedrick Segal Physician on 09/18/2018 05 :23 xB/ CC: ERIC BENTLEY PRODUCT SAFETY EXPERT Procedures/MDM ED course: CBC: No evidence of severe anemia or infection. Beta hC.0 UA: No evidence of urinary tract infection. Blood type: O+. RhoGAM is not indicated for patient. OB ultrasound: Single live intrauterine with estimated gestational age of 8 weeks 3 days, TOAN 04/27/2019, heart rate 171 bpm Medical decision-making: Patient presents with light vaginal spotting. Patient is just age by LMP corresponds to age by ultrasound. Beta hCG is also within the range of her gestation age. At this time, I have very low suspicion for threatened . I doubt heterotopic . Patient advised to follow-up with her OB in 2 days for beta hCG quant recheck. Spontaneous and ectopic instructions and return precautions provided. Medications on discharge: Tylenol. Follow-up: Primary care provider in 2 days or return to ED if worse. Departure Diagnosis: Primary Impression: Vaginal bleeding in patient at less than 20 weeks ges... Condition: Stable ERIC BENTLEY NP Sep 18, 2018 04:31
[2018-09-18] MEDS ORDERED: ACET500C5 PO (06:05)
[2018-09-18 06:31] VITALS: BP 122/65; PULSE 76; RESP 19
== END 2018-09-18 06:32 | disposition home or self-care (01) ==
LOC: FTE 23:53
DX: O20.9 Hemorrhage in early pregnancy, unspecified (principal); R40.2412 Glasgow coma scale score 13-15, at arrival to emergency department; Z3A.08 8 weeks gestation of pregnancy
CPT/HCPCS: 36415; 76801; 81001; 84702; 85025; 86900; 86901; Z7502

== ENCOUNTER 2018-10-25 05:10 | Emergency (ER) | payer MEDICAID ==
[~2018-10-25] VITALS: Ht 160 cm; Wt 100.0 kg
[~2018-10-25 05:10] MED LIST changes: +ACET500C5 PO
[2018-10-25 05:13] VITALS: Ht 160 cm; Wt 100.0 kg
[2018-10-25] MEDS ORDERED: ACETAMINOPHEN 500 MG TAB PO STA (05:47)
--- NOTE | 2018-10-25 05:50 | ERD ---
ER Documentation Chief Complaint Chief Complaint VAGINAL BLEEDING X TODAY. 15 WKS HPI This is a 33-year-old female who presents here in emergency department with complaints of pelvic pain, vaginal bleeding since last night. LMP: 07/28/2018. TOAN: 04/21/2019. M2. Denies headache, dizziness, blurry vision, changes in vision, neck pain, neck stiffness, throat pain, difficulty swallowing, difficulty breathing lying flat, loss of bowel bladder control, urinary symptoms, trauma, injury, falls, recent surgery in the last 3 weeks, recent travel, recent long travel, leg pain, difficulty walking, numbness or tingling sensation, recent exposure to any illness, recent antibiotic use in the last 3 months, fever, chills. Denies past medical history. Surgical history: x2, appendectomy. ROS All systems reviewed and are negative except as per history of present illness. Medications Home Meds Active Scripts Cephalexin* (Keflex*) 500 Mg Capsule, 500 MG PO TID for 7 Days, CAP Prov:SHAN DOUGLAS F 10/25/18 Vit No.124/Iron/FA ( Vitamin Tablet) 1 Each Tablet, 1 EACH PO DAILY, #30 TAB Prov:DANYELLEILASHAN MOLINA F 10/25/18 Acetaminophen* (Tylophen*) 500 Mg Capsule, 1 CAP PO Q6H PRN for PAIN AND OR ANA VATED TEMP, #20 CAP Prov:DANYELLEILABANYFNAR F 10/25/18 Acetaminophen* (Tylophen*) 500 Mg Capsule, 1 CAP PO Q6H PRN for PAIN AND OR ELEVATED TEMP, #20 CAP Prov:ERIC BENTLEY NP 09/18/18 Reported Medications Vit-Iron Fumarate-FA ( Tablet) 1 Each Tablet, 1 EACH PO DAILY 12/17/13 Allergies Allergies: Coded Allergies: No Known Allergy (Verified , 09/17/18) PMhx/Soc Medical and Surgical Hx: pt denies Medical Hx, pt denies Surgical Hx History of Surgery: No Anesthesia Reaction: No Hx Neurological Disorder: No Hx Respiratory Disorders: No Hx Cardiac Disorders: No Hx Psychiatric Problems: No Hx Miscellaneous Medical Probl: No Hx Alcohol Use: No Hx Substance Use: No Hx Tobacco Use: No Smoking Status: Never smoker Physical Exam Vitals Vital Signs Date Temp Pulse Resp B/P (MAP) Pulse Ox O2 O2 Flow FiO2 Time Delivery Rate 10/25/18 87 16 124/79 98 Room Air 08:04 (94) Physical Exam Const: No acute distress Head: Atraumatic Eyes: Normal Conjunctiva ENT: Normal External Ears, Nose and Mouth. Neck: Full range of motion. No meningismus. Resp: Clear to auscultation bilaterally Cardio: Regular rate and rhythm, no murmurs Abd: Soft, non tender, non distended. Normal bowel sounds. Negative Goncalves sign. No CVA tenderness. Skin: No petechiae or rashes Back: No midline or flank tenderness Ext: No cyanosis, or edema Neur: Awake and alert Psych: Normal Mood and Affect Result Diagram: 10/25/18 0556 10/25/18 0555 Results 24 hrs Laboratory Tests Test 10/25/18 05:55 10/25/18 05:56 Sodium Level 138 mmol/L Potassium Level 4.0 mmol/L Chloride Level 102 mmol/L Carbon Dioxide Level 25 mmol/L Anion Gap 11 Blood Urea Nitrogen 8 mg/dl Creatinine 0.56 mg/dl Est Glomerular Filtrat Rate mL/min > 60 mL/min Glucose Level 99 mg/dl Calcium Level 9.6 mg/dl Total Bilirubin 0.1 mg/dl Direct Bilirubin 0.00 mg/dl Indirect Bilirubin 0.1 mg/dl Aspartate Amino Transf (AST/SGOT) 17 IU/L Alanine Aminotransferase (ALT/SGPT) 9 IU/L Alkaline Phosphatase 69 IU/L Total Protein 7.6 g/dl Albumin 4.2 g/dl Globulin 3.40 g/dl Albumin/Globulin Ratio 1.23 Amylase Level 67 U/L Lipase 67 U/L Beta HCG, Quantitative 23842.0 mIU/ml White Blood Count 8.9 10^3/ul Red Blood Count 4.06 10^6/ul Hemoglobin 12.2 g/dl Hematocrit 35.6 % Mean Corpuscular Volume 87.7 fl Mean Corpuscular Hemoglobin 30.0 pg Mean Corpuscular Hemoglobin Concent 34.3 g/dl Red Cell Distribution Width 12.6 % Platelet Count 241 10^3/UL Mean Platelet Volume 8.7 fl Immature Granulocytes % 0.300 % Neutrophils % 60.0 % Lymphocytes % 33.1 % Monocytes % 5.4 % Eosinophils % 0.8 % Basophils % 0.4 % Nucleated Red Blood Cells % 0.0 /100WBC Immature Granulocytes # 0.030 10^3/ul Neutrophils # 5.3 10^3/ul Lymphocytes # 2.9 10^3/ul Monocytes # 0.5 10^3/ul Eosinophils # 0.1 10^3/ul Basophils # 0.0 10^3/ul Nucleated Red Blood Cells # 0.0 10^3/ul Urine Color YELLOW Urine Clarity SLIGHTLY CLOUDY Urine pH 5.0 Urine Specific [place] 1.023 Urine Ketones NEGATIVE mg/dL Urine Nitrite NEGATIVE mg/dL Urine Bilirubin NEGATIVE mg/dL Urine Urobilinogen NEGATIVE mg/dL Urine Leukocyte Esterase 3+ Katelyn/ul Urine Microscopic RBC 3 /HPF Urine Microscopic WBC 15 /HPF Urine Squamous Epithelial Cells FEW /HPF Urine Bacteria FEW /HPF Urine Mucus FEW /HPF Urine Hemoglobin 3+ mg/dL Urine Glucose NEGATIVE mg/dL Urine Total Protein NEGATIVE mg/dl Current Medications Medications Dose Sig/Eleanor Start Time Status Last (Trade) Ordered Route PRN Stop Time Admin Dose Reason Admin 500 mg ONCE STAT 10/25/18 DC 10/25/18 Acetaminophen PO 05:47 05:54 (Tylenol 10/25/18 05:50 Tab) Procedures/MDM Diagnostic tests: Urinalysis: Reviewed. Culture urine: Sent. HCG quantitative: 95506.0 Type and Rh: O Positive. Blood works: Reviewed. OB ultrasound: Single live intrauterine with an estimated gestational age of 14 weeks and 4 days, based on ultrasound measurements. TOAN based on ultrasound measurements is 04/21/19. Anterior fibroid measuring 6 cm. Treatment: Tylenol p.o. Re-evaluation: Denies pain. No active bleeding. Differential diagnosis I have low suspicion for hemorrhaging, sepsis. Final diagnosis: UTI in . Vaginal bleeding in . Prescription: Tylenol. Keflex. vitamins. Follow-up with OB in the next 24-48 hours. Resources was also provided. Come back here in the emergency department for any new symptoms or any worsening symptoms. All questions and concerns were answered. Patient and family members verbalized understanding and agreed with plan of care. Hemodynamically stable on discharge. Departure Diagnosis: Primary Impression: Vaginal bleeding in patient at less than 20 weeks gestation Additional Impression: UTI (urinary tract infection) Condition: Stable Additional Instructions: Follow-up with OB in the next 24-48 hours. Resources was also provided. Come back here in the emergency department for any new symptoms or any worsening symptoms. SHAN DOUGLAS Oct 25, 2018 05:50
[2018-10-25] MEDS ORDERED: PREN-93 PO (06:14)
[2018-10-25] MEDS ORDERED: ACET500C5 PO (06:14)
[2018-10-25] MEDS ORDERED: CEPH-443 PO (06:20)
[2018-10-25 08:04] VITALS: BP 124/79; PULSE 87; RESP 16
== END 2018-10-25 08:06 | disposition home or self-care (01) ==
LOC: FTE 05:10
DX: O20.9 Hemorrhage in early pregnancy, unspecified (principal); O23.42 Unspecified infection of urinary tract in pregnancy, second trimester; Z3A.14 14 weeks gestation of pregnancy
CPT/HCPCS: 36415; 76801; 80053; 81001; 82150; 83690; 84702; 85025; 86900; 86901; 87086; Z7502; Z7610

== ENCOUNTER 2018-11-09 22:46 | Emergency (ER) | payer MEDICAID ==
[~2018-11-09] VITALS: Ht 160 cm; Wt 86.2 kg
[~2018-11-09 22:46] MED LIST changes: +CEPH-443 PO; +PREN-93 PO
[2018-11-09 22:52] VITALS: Ht 160 cm; Wt 86.2 kg
[2018-11-10] MEDS ORDERED: ACETAMINOPHEN 325 MG TAB PO ONE (01:00)
[2018-11-10] MEDS ORDERED: ACET500C5 PO (02:43)
[2018-11-10] MEDS ORDERED: NITR-58 PO (02:43)
--- NOTE | 2018-11-10 02:47 | ERD ---
ER Documentation Chief Complaint Chief Complaint Pt reports cramping and blood in urine HPI 33-year-old female presents with dysuria low back pain possible vaginal bleeding. She is uncertain but blood may be in urine. She is approximately 16 weeks by dates. She was treated for UTI 2 weeks ago. She is ap proximately a . ROS All systems reviewed and are negative except as per history of present illness. Medications Home Meds Active Scripts Nitrofurantoin Monohyd Macrocr* (Macrobid*) 100 Mg Capsr, 100 MG PO BID for 7 Days, CAP Prov:JUSTYNA HURD MD 11/10/18 Acetaminophen* (Tylophen*) 500 Mg Capsule, 1 CAP PO Q6H PRN for PAIN AND OR ELEVATED TEMP, #15 CAP Prov:JUSTYNA HURD MD 11/10/18 Cephalexin* (Keflex*) 500 Mg Capsule, 500 MG PO TID for 7 Days, CAP Prov:PASILABANYFNAR F 10/25/18 Vit No.124/Iron/FA ( Vitamin Tablet) 1 Each Tablet, 1 EACH PO DAILY, #30 TAB Prov:DANYELLEILABANSHAN F 10/25/18 Acetaminophen* (Tylophen*) 500 Mg Capsule, 1 CAP PO Q6H PRN for PAIN AND OR ELEVATED TEMP, #20 CAP Prov:DANYELLEILABANYFNAR F 10/25/18 Acetaminophen* (Tylophen*) 500 Mg Capsule, 1 CAP PO Q6H PRN for PAIN AND OR ELEVATED TEMP, #20 CAP Prov:ERIC BENTLEY NP 09/18/18 Reported Medications Vit-Iron Fumarate-FA ( Tablet) 1 Each Tablet, 1 EACH PO DAILY 12/17/13 Allergies Allergies: Coded Allergies: No Known Allergy (Verified , 09/17/18) PMhx/Soc History of Surgery: No Anesthesia Reaction: No Hx Neurological Disorder: No Hx Respiratory Disorders: No Hx Cardiac Disorders: No Hx Psychiatric Problems: No Hx Miscellaneous Medical Probl: No Hx Alcohol Use: No Hx Substance Use: No Hx Tobacco Use: No FmHx Family History: No diabetes, No coronary disease, No other Physical Exam Vitals Vital Signs Date Temp Pulse Resp B/P (MAP) Pulse Ox O2 O2 Flow FiO2 Time Delivery Rate 11/09/18 98.3 94 20 115/72 98 22:52 (86) Physical Exam Const: No acute distress Head: Atraumatic Eyes: Normal Conjunctiva ENT: Normal External Ears, Nose and Mouth. Neck: Full range of motion. No meningismus. Resp: Clear to auscultation bilaterally Cardio: Regular rate and rhythm, no murmurs Abd: Soft, possibly minimal suprapubic tenderness. No tenderness McBurney's point no Goncalves sign., non distended. Normal bowel sounds Skin: No petechiae or rashes Back: No midline or flank tenderness Ext: No cyanosis, or edema Neur: Awake and alert Psych: Normal Mood and Affect Results 24 hrs Laboratory Tests Test 11/10/18 01:11 Urine Color YELLOW Urine Clarity CLEAR Urine pH 6.0 Urine Specific [place] 1.029 Urine Ketones NEGATIVE mg/dL Urine Nitrite NEGATIVE mg/dL Urine Bilirubin NEGATIVE mg/dL Urine Urobilinogen NEGATIVE mg/dL Urine Leukocyte Esterase TRACE Katelyn/ul Urine Microscopic RBC 1 /HPF Urine Microscopic WBC 5 /HPF Urine Squamous Epithelial Cells FEW /HPF Urine Bacteria FEW /HPF Urine Mucus FEW /HPF Urine Hemoglobin 3+ mg/dL Urine Glucose NEGATIVE mg/dL Urine Total Protein NEGATIVE mg/dl Current Medications Medications Dose Sig/Eleanor Start Time Status Last (Trade) Ordered Route PRN Stop Time Admin Dose Reason Admin 650 mg ONCE ONCE 11/10/18 DC 11/10/18 Acetaminophen PO 01:00 11/10/18 01:12 (Tylenol 01:02 Tab) Procedures/MDM Pelvic ultrasound shows normal-appearing 16-week intrauterine without abnormal And shows trace leukocyte esterase with few white blood cells. Urine was sent for culture. Urinalysis sent for gonorrhea chlamydia. Patient presents with possible vaginal spotting or hematuria and findings of UTI. She has no findings to suggest ectopic , appendicitis, surgical abdomen. She has good OB follow-up. She has no evidence of sepsis or pyelonephritis. Will treat with Macrobid, Tylenol, further observation at home and return precautions. The patient was stable with no new complaints during the ER course. Clinically, there is no current evidence to suggest meningitis, sepsis, acute abdomen, pneumonia, stroke, acute coronary syndrome, pulmonary embolism, aortic dissection or any other emergent condition appearing to require further evaluation or hospitalization. Patient counseled regarding my diagnostic impression and care plan. Prior to discharge all questions answered. Pt agrees with treatment plan and understands strict return precautions. Pt is instructed to follow up with primary care provider within 24-48 hours. Precaut ionary instructions provided including instructions to return to the ER if not improving or for any worsening or changing symptoms or concerns. Departure Diagnosis: Primary Impression: Vaginal bleeding in patient at less than 20 weeks ges... Additional Impression: UTI (urinary tract infection) Urinary tract infection type: acute cystitis Hematuria presence: without hematuria Qualified Codes: N30.00 - Acute cystitis without hematuria Condition: Stable Patient Instructions: Understanding Urinary Tract Infections (UTIs), Bleeding During Early Additional Instructions: Pain her blood may be from urinary tract infection. Ultrasound normal today. Recheck for worsening pain, fevers, new worsening symptoms. Urine culture pending. JUSTYNA HURD MD Nov 10, 2018 02:47
[2018-11-10 02:53] VITALS: BP 108/71; PULSE 100; RESP 20
== END 2018-11-10 02:56 | disposition home or self-care (01) ==
LOC: FTE 22:46
DX: O20.9 Hemorrhage in early pregnancy, unspecified (principal); O23.12 Infections of bladder in pregnancy, second trimester; Z3A.16 16 weeks gestation of pregnancy
CPT/HCPCS: 76805; 81001; 87086; 87591; Z7502; Z7610

== ENCOUNTER 2018-11-26 08:17 | Inpatient (IN) | payer MEDICAID ==
[~2018-11-26] VITALS: Ht 160 cm; Wt 88.9 kg
[~2018-11-26 08:17] MED LIST changes: +NITR-58 PO
[2018-11-26 08:21] VITALS: BMI 36.6
[2018-11-26 08:22] VITALS: BP 112/65
[2018-11-26] MEDS ORDERED: FERR325T5 PO (09:33)
[2018-11-26] MEDS ORDERED: LACTATED RINGER'S 1,000 ML IV SCH (09:34)
--- NOTE | 2018-11-26 09:47 | TRIAGE ---
OB Triage Datetime Report Generated by CPN: 11/26/2018 09:47 Datetime: 11/26/2018 09:21 Comments: REPORT GIVEN TO JAKE Datetime: 11/26/2018 09:16 Comments: TRANSFERED TO LABOR AND DELIVERY Datetime: 11/26/2018 08:28 Stage of : OB Triage Assessment Type: Triage Maternal Assessment Level of Consciousness: Fully Conscious DTR's/Clonus: DTRs 2+; No Clonus Headache: Denies Blurred Vision: No Respiratory Effort: Unlabored; Regular Rhythm; Equal Expansion Breath Sounds, Left: Clear and Equal Breath Sounds, Right: Clear and Equal Nausea/Vomiting: Denies RUQ Epigastric Pain: Denies Lower Extremities Edema: None Degree: None Upper Extremities Edema: None Degree: None Facial Edema: None Temperature Route: Oral Fall Risk Assessment History of Falling: (0) No Secondary Diagnosis: (0) No Ambulatory Aid: (0) Bedrest/Nurse Assist IV Therapy: (0) No Gait: (0) Normal/Bedrest/Immobile Mental Status: (0) Oriented to Own Ability Fall Score: 0 Fall Risk Score Definition: No Risk: No action required Labor Evaluation Monitor Mode: External Heart Rate Monitor Mode: Doppler Pain Assessment Pain Scale: 0 Pain Presence: None/Denies Pain Type: N/A Datetime: 11/26/2018 08:27 Time of Arrival: 11/26/2018 08:05 EGA: 19.5 Arrived By: Ambulance Arrived From: Home Chief Complaint: UQP, FELT SOMETHING COME OUT AND PUSHED IT BACK IN Movement: Decreased Contractions: Denies/Absent Rupture of Membranes: Unsure Vaginal Bleeding: Normal Show Vaginal Discharge: Present Recent Sexual Intercouse: Denies Abdominal Trauma: Not Applicable Patient Complaints: Other Time Provider Notified: 11/26/2018 09:01 Provider Notified: DR. COTA Initial Plan: CALL
[2018-11-26] MEDS ORDERED: MISOPROSTOL 200 MCG TAB PR PRN ×2 (10:00→22:30)
[2018-11-26] MEDS ORDERED: OXYTOCIN 30 UNITS/LR 500 ML IV PRN ×2 (10:00→22:30)
[2018-11-26] MEDS ORDERED: OXYTOCIN 30 UNITS/LR 500 ML IV SCH ×2 (10:00)
[2018-11-26] MEDS ORDERED: CARBOPROST 250 MCG INJ IM PRN ×2 (10:00→22:30)
[2018-11-26] MEDS ORDERED: LIDOCAINE 1% (MPF) 30 ML INJ INJ PRN (10:00)
[2018-11-26] MEDS ORDERED: METHYLERGONOVINE 0.2 MG INJ IM PRN ×2 (10:00→22:30)
[2018-11-26] MEDS: LACTATED RINGER'S 1,000 ML IV SCH ×2 (10:16→10:21)
--- NOTE | 2018-11-26 11:24 | CONS ---
DATE OF ADMISSION: 11/26/2018 DATE OF CONSULTATION: 11/26/2018 I received a call from Dr. Cota'charan this morning, informing me that this patient who is 19 weeks and 5 days presented with dilation and bulging bag into the vagina given the gestational age, w hich is very far from viability. RECOMMENDATIONS: My recommendation is induction of labor and delivery. The decision that I made is based on the recommendation and based on the fact that far from maturity and with the bag in the memb bella, there is a very high risk of maternal infection, sepsis, chorioamnionitis, and cons equences of that. Dictated By: LIAT BAY MD ST/NTS Conf#: [id number] DID#: [id number] CC: SARI COTA MD;*EndCC*
[2018-11-26] MEDS ORDERED: BUTORPHANOL 2 MG INJ ONE (12:29)
[2018-11-26] MEDS: BUTORPHANOL 2 MG INJ IV PRN ×4 (12:33→20:51)
--- NOTE | 2018-11-26 14:15 | HP ---
Date/Time of Note Date/Time of Note DATE: 11/26/18 TIME: 14:11 OB - History Hx of Present Chief Complaint: pelvic pain and bulging mass in vagina Estimated Due Date: Apr 21, 2019 : 9 Para: 5 Spontaneous : 1 Therapeutic : 0 Care: Limited Care Obstetrical Complications: None Medical Complications: None Past Family/Social History * Past Medical, Surgical, Family and Obstetric Histories reviewed from chart. OB Admission Exam Vital Signs Vital Signs Vital Signs Date Temp Pulse Resp B/P (MAP) Pulse Ox O2 O2 Flow FiO2 Time Delivery Rate 11/26/18 98.6 112/65 08:22 (81) Physical Exam HEENT: WNL Heart: Rhythm Normal Lungs: Clear, Equal Abdomen: WNL Extremities: Normal Reflexes: Normal Cervical Dilatation: 10cm Station: -3 Membranes: Intact Heart Rate: 150's Last 72 hours Lab Results CBC & BMP 11/26/18 09:54 OB Assessment/Plan Reason for admission: other Other Assessment: Threatened Plan: Other Other plan: Admit Patient is having labor contractions Will deliver per recommendation of Perinatology. SARI COTA MD Nov 26, 2018 14:15
[2018-11-26] MEDS ORDERED: MISOPROSTOL 200 MCG TAB PO ONE (21:00)
[2018-11-26] MEDS ORDERED: CEFAZOLIN 2 GM/50 ML (PMX) 50 ML IVPB ONE (22:00)
[2018-11-26] MEDS ORDERED: DIPHENHYDRAMINE 50 MG INJ IV PRN (22:30)
[2018-11-26] MEDS ORDERED: ACETAMINOPHEN 325 MG TAB PO PRN (22:30)
[2018-11-26] MEDS ORDERED: WITCH HAZEL/GLYCERIN PAD PR PRN (22:30)
[2018-11-26] MEDS ORDERED: ZOLPIDEM 5 MG TAB PO PRN (22:30)
[2018-11-26] MEDS ORDERED: BENZOCAINE 20% 56 ML SPRAY TOP PRN (22:30)
[2018-11-26] MEDS ORDERED: SENNA/DOCUSATE NA (8.6MG/50MG) TAB PO PRN (22:30)
[2018-11-26] MEDS ORDERED: DIBUCAINE 1% 30 GM OINT TOP PRN (22:30)
[2018-11-26] MEDS ORDERED: ONDANSETRON 4 MG INJ IV PRN (22:30)
[2018-11-26] MEDS ORDERED: LANOLIN HPA 1 PKT TOP PRN (22:30)
[2018-11-27 00:19] VITALS: Ht 160 cm; Wt 88.9 kg
[2018-11-27 00:43] VITALS: BP 110/60; PULSE 82; RESP 18
[2018-11-27] MEDS: IBUPROFEN 600 MG TAB PO SCH ×3 (00:48→12:08)
[2018-11-27] MEDS: LACTATED RINGER'S 1,000 ML IV* SCH ×3 (00:49→14:01)
[2018-11-27] MEDS: OXYCODONE/ASPIRIN (4.88/325) TAB PO PRN ×3 (00:49→09:47)
[2018-11-27] MEDS: DEXTROSE 5%-LR 1,000 ML IV SCH ×3 (00:56→09:48)
[2018-11-27 02:32] VITALS: BP 118/65; PULSE 91; RESP 19
--- NOTE | 2018-11-27 05:45 | LDN ---
Date/Time of Note Date/Time of Note DATE: 11/27/18 TIME: 05:40 Delivery Summary Late entry note. Patient seen at 20:10 on 11/26/2018 33 years old with single intrauterine at the 19 weeks and 5 days spontaneously delivered a 242 g fetus at 17:41. The patient received Pitocin after delivery of the fetus. The placenta was still not delivered. Dr. Marcos asked me to evaluate the patient. I delivered the placenta intact and spontaneously. Patient tolerated procedure well. Overall EBL 300 mL Weeks of Gestation 19 weeks and 5 days Anesthesia type: None Estimated blood loss: 300 Sponge & Needle done & correct: Yes All needle counts correct: Yes Any foreign bodies felt in the: No Mother & Baby Disposition Disposition Mom & Baby to Maternity; Good: Yes TAINA MACKEY Nov 27, 2018 05:45
[2018-11-27 07:45] VITALS: BP 98/58; PULSE 84; RESP 16
[2018-11-27 14:38] VITALS: BP 99/53; PULSE 95; RESP 16
--- NOTE | 2018-11-27 16:57 | DS ---
Date/Time of Note Date/Time of Note DATE: 11/27/18 TIME: 16:56 Obstetrical Discharge Record Final Diagnosis Final Diagnosis: delivered Vaginal Delivery Obstetrical Delivery: Spontaneous, Successful Demise Demise: Intrapartum Complications Labor Condition on Discharge Physical Assessment Voiding: Yes Bowel Movement: Yes Breast: Soft, non-tender, Filling Fundus: Firm Calf Tenderness: No Patient Condition: Stable SARI COTA MD Nov 27, 2018 16:57
[2018-11-28] MEDS ORDERED: MEASLES,MUMPS,RUBELLA VACCINE INJ SC* ONE (09:00)
[2018-11-28] MEDS ORDERED: DIPHTH/TET/ACEL PERTUSS (ADULT) 0.5 ML VIAL IM* ONE (09:00)
[2018-11-28] MEDS ORDERED: INFLUENZA VIRUS VACCINE 0.5 ML (DISPENSING) IM* ONE (10:00)
--- NOTE | 2018-12-02 11:27 | DELSUM ---
Delivery Summary A-C Datetime Report Generated by CPN: 12/02/2018 11:20 DELIVERY PERSONNEL Surg Rn: Myron, Romana MATERNAL INFORMATION Delivery Anesthesia: None Medications in Delivery: PITOCIN 30 UNITS IN 500 ML LR AT 1630 Delivery QBL (ml): 300 Placenta Cultured: No Maternal Complications: None RN Comments: DEMISE AT 19.5 WEEKS IUP LABOR SUMMARY EDC: 04/17/2019 00:00 No. Babies in Womb: 1 Attempted: No Labor Anesthesia: None LABOR INFORMATION Reason for Induction: Not Applicable Onset of Labor: 11/26/2018 07:20 Complete Dilatation: 11/26/2018 17:30 Oxytocin: N/A Group B Beta Strep: Done, Result Unknown Antibiotics # of Doses: 0 Steroids Given: None Reason Steroids Not Administered: Not Applicable MEMBRANES Membranes Rupture Method: Spontaneous Rupture of Membranes: 11/26/2018 17:07 Length of Rupture (hr): 0.57 Amniotic Fluid Color: Clear Amniotic Fluid Amount: Small STAGES OF LABOR Stage 1 hr: 10 Stage 1 min: 10 Stage 2 hr: 0 Stage 2 min: 11 Stage 3 hr: 2 Stage 3 min: 34 Total Time in Labor hr: 12 Total Time in Labor min: 55 VAGINAL DELIVERY Episiotomy: None Laceration Extension: N/A Laceration Type: None Laceration Repair: Not Applicable Initial Vag Sponge Count: 5 Final Vag Sponge Count: 5 Initial Vag Sharps Count: 1 Final Vag Sharps Count: 1 Sponge Count Correct: Yes Sharps Count Correct: Yes Count Comment: boa kit used for delivery BABY A INFORMATION Delivery Date/Time: 11/26/2018 17:41 Method of Delivery: Vaginal Born in Route : No : N/A Forceps: N/A Vacuum Extraction: N/A Shoulder Dystocia : N/A SHOULDER DYSTOCIA BABY A Infant Delivery Date/Time: 11/26/2018 17:41 PRESENTATION/POSITION BABY A Presentation: Cephalic Cephalic Presentation: Vertex Breech Presentation: N/A PLACENTA INFORMATION BABY A Placenta Delivery Time : 11/26/2018 20:15 Placenta Method of Delivery: Spontaneous Placenta Status: Delivered SCORES BABY A Heart Rate 1 min: Absent Resp Effort 1 min: Absent Reflex Irritability 1 min: No Response Muscle Tone 1 min: Flaccid Color 1 min: Blue/Pale SCORE 1 MIN: 0 Heart Rate 5 min: Absent Resp Effort 5 min: Absent Reflex Irritability 5 min: No Response Muscle Tone 5 min: Flaccid Color 5 min: Blue/Pale SCORE 5 MIN: 0 INFORMATION BABY A Gestational Age at Delivery: 19.5 Gestational Status: - <34 Weeks Outcome : Stillborn Condition : N/A Sex: Female WEIGHT/LENGTH BABY A Birthweight (gm): 242 Infant Weight (lb): 0 Infant Weight (oz): 9 CORD INFORMATION BABY A No. Cord Vessels: 3 Nuchal Cord : N/A Suction: None ASSESSMENT BABY A Insole Rounder/ALS Called : No
== END 2018-11-27 17:41 | disposition home or self-care (01) | DRG 805 ==
LOC: OBT 08:17 → L-D 08:19 → OBT 09:00 → L-D 09:01 → MS3 22:31
PROVIDERS: ADMIT Obstetrics & Gynecology; ATTEND Obstetrics & Gynecology
PROC: 10E0XZZ Delivery of Products of Conception, External Approach (ICD-10-PCS; principal; 2018-11-26)
PROC: 3E0P7VZ Introduction of Hormone into Female Reproductive, Via Natural or Artificial Opening (ICD-10-PCS; 2018-11-26)
DX: O20.0 Threatened abortion (principal); O60.12X0 Preterm labor second trimester with preterm delivery second trimester, not applicable or unspecified; Z37.1 Single stillbirth; Z3A.19 19 weeks gestation of pregnancy
CPT/HCPCS: 76815; 85025; 85610; 85730; 86592; 86762; 86850; 86900; 86901; 87340; 88307; G0463; J0595; J0690; J2590; J7120; J7121